=== PATIENT | male | born 1970 | race Caucasian/White ===

== ENCOUNTER 2025-02-26 19:34 | Emergency (ER) | payer OTHER, SELFPAY ==
[2025-02-26] VITALS (10 sets, daily range): BP systolic 116–149; BP diastolic 84–100; BMI 29.6
[2025-02-26 19:59] LABS: % Basophils 0.8 % (0-2); % Eosinophils 2.2 % (0-6); % Immature Granulocytes 0.3 % (0-0.5); % Lymphocytes 37.3 % (20.5-51.1); % Monocytes 9.2 % (1.7-9.3); % Neutrophils 50.2 % (42.2-75.2); Absolute Basophils 0.1 10^3/uL (0-0.2); Absolute Eosinophils 0.2 10^3/uL (0-0.7); Absolute Lymphocytes 2.7 10^3/uL (1.2-3.4); Absolute Monocytes 0.7 10^3/uL (0.1-0.6); Absolute Neutrophils 3.7 10^3/uL (1.4-6.5); Hemoglobin 16.7 g/dL (13.0-18.0); Mean Corp Hgb Conc. 34.8 g/dL (33.0-37.0); Mean Corpuscular Hgb 31.4 pg (27.0-31.0); Mean Corpuscular Volume 90.2 fL (80.0-94.0); Mean Platelet Volume 11.3 fL (7.4-10.4); Nucleated Red Blood Cells % 0 % (-); Platelet Count 182 10^3/uL (130-400); Red Blood Cell Count 5.32 10^6/uL (4.70-6.10); Red Cell Dist. Width 12.4 % (11.5-14.5); White Blood Cell Count 7.3 10^3/uL (4.8-10.8)
[2025-02-26 20:16] LABS: ALT (SGPT) 40 U/L (0-50); AST (SGOT) 36 U/L (17-59); Albumin 4.9 g/dl (3.5-5.0); Alkaline Phosphatase 65 U/L (38-126); Blood Urea Nitrogen 27 mg/dl (9-20); Calcium 9.2 mg/dl (8.4-10.2); Carbon Dioxide 26 mmol/L (22-30); Chloride 106 mmol/L (98-107); Glucose 137 mg/dl (70-99); Magnesium 2.2 mg/dl (1.6-2.3); Potassium 3.9 mmol/L (3.5-5.1); Sodium 141 mmol/L (135-145); Total Bilirubin 0.9 mg/dl (0.2-1.3); Total Protein 7.5 g/dl (6.3-8.2); eGFR > 60.00
[2025-02-26 20:23] LABS: Troponin I 0.025 ng/ml
[2025-02-26 20:46] LABS: TSH Reflex To Free T4 2.29 uIU/ml (0.47-4.68)
--- NOTE | 2025-02-26 21:03 | ED.GENMED ---
History of Present Illness
General
Chief Complaint: Heart Rate Problem
Time Seen by Provider: 02/26/25 20:34
History of Present Illness
History of Present Illness:
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 Patient states at 7:30 PM he developed palpitations. He checked his Apple Watch and was found to be in atrial
fibrillation. He does have history of 1 episode of atrial fibrillation in July when he went to [place] and he was cardioverted. His [id number] was 0 so they did not initiate Eliquis and they did not start him on antiarrhythmic. History of
thyroiditis that resolved. No chest pain. No shortness of breath. He does see Dr. Shirley from cardiology. He did have a CT calcium score that was 0. He denies any recent illnesses. He does state that he had extra chocolate today with his
usual 2 cups of coffee.
Past History
Past History
ED Past Medical History: Hypercholesterolemia and Other ( prediabetes diet controlled)
ED Past Surgical History: Appendectomy
Social History
Tobacco: Non-smoker
Alcohol: None
Personal:
Living: with family
Family History
Family History: Other (Mother with previous cholecystectomy and aortic valve replacement. Father with hypertension)
Phy Exam
Physical Exam
Physical Exam:
GENERAL: in no acute distress
HEENT: normocephalic, extraocular movements intact, moist oral mucosa
NECK: normal inspection
RESPIRATORY: no respiratory distress, clear to auscultation bilaterally
CARDIOVASCULAR: Irregularly irregular, tachycardic
ABDOMEN/: soft, non-distended, non-tender to palpation, no rebound or guarding
EXTREMITIES: non-tender, no edema/swelling
NEUROLOGIC: awake and alert, moves all extremities
SKIN: warm
Course
Orders/Labs/Results
Orders:
Orders
02/26/25 19:38
ECG [Electrocardiogram (*1)] Urgent
Reason for Study: Tachycardia
02/26/25 19:39
EKG- Treatment ONCE
02/26/25 19:45
Complete Blood Count/With Diff Urgent
Comprehensive Metabolic Panel Urgent
Magnesium Urgent
TSH Reflex To Free T4 Urgent
Troponin I Urgent
02/26/25 21:01
Etomidate [Amidate] 8 mg IV NOW STA
02/26/25 21:02
Etomidate [Amidate 20 mg] 20 mg .ROUTE .STK-MED ONE
02/26/25 21:14
Ondansetron Injectable [Zofran] 4 mg .ROUTE .STK-MED ONE
02/26/25 21:27
Electrocardiogram (*1) Urgent
Reason for Study: Other
Other Reason for Exam: post cardioversion
EKG- Treatment ONCE
Abnormal Lab Results
02/26/25
19:45
MCH 31.4 H pg
(27.0-31.0)
MPV 11.3 H fL
(7.4-10.4)
Absolute Monos (auto) 0.7 H 10^3/uL
(0.1-0.6)
BUN 27 H mg/dl
(9-20)
Glucose 137 H mg/dl
(70-99)
02/26/25 19:45
02/26/25 19:45
Vital Signs
Initial and Last Documented VS:
Initial Vital Signs
Temp Pulse Resp BP Pulse Ox
98.0 F 76 20 149/100 98
02/26/25 19:36 02/26/25 19:36 02/26/25 19:36 02/26/25 19:36 02/26/25 19:36
Last Documented Vital Signs
Temp Pulse Resp BP Pulse Ox
98.5 F 86 18 138/96 100
02/26/25 21:29 02/26/25 22:04 02/26/25 22:04 02/26/25 22:04 02/26/25 22:04
Procedures
Cardioversion
Indication:: Afib
Performed by:: shanon
Synchronized?: Yes
Energy Used: 200 joules
Number of attempts: 1
Successful?: Yes
ASA Risk Score: Class I
Any reaction or bad outcome to prior sedation/anesthesia?: No history of a reaction
Sedation level to be attained: moderate
Chart and allergies reviewed: Yes
Patient reassessed prior to sedation: Yes
Time out completed at (validating right patient & procedure): 21:22
History of difficult intubation: No
Airway free of obstruction: Yes
Patient has a gag reflex: Yes
Patient is able to open mouth: Yes
Patient has no dentures: Yes
Patient has no loose teeth: Yes
Medication administered by Provider during Moderate Sedation: Other (etomidate)
Total dose administered: 8
Start Time: 21:24
Stop Time: 21:34
MDM/Problems Addressed
Differential Diagnosis Includes:
Patient is a 54-year-old man presenting to the emergency department with elevated heart rate. During my evaluation patient's heart rate was anywhere from the 140s to the 170s in afib. Exam is otherwise reassuring. Unclear etiology of patient's
atrial fibrillation but he does not appear septic and does not have any risk factors for PE. Could be secondary to the caffeine. Will check electrolytes as well as thyroid given patient's history.
*Critical Care Note
Total Time (30-74mins, 75-104mins- exclusive of procedures): Not Applicable (31)
comment:
Critical care statement: A total of 31 minutes of critical care time was provided for this patient. This includes management of unstable vital signs, evaluation of the patient at bedside, reviewing the patient's pertinent medical records, ordering
and reviewing studies, arranging urgent treatment with development of a management plan, evaluating patient's response to treatment, frequent reassessment, and discussion with consultants. This time was separate from time utilized to perform the
aforementioned documented procedures.
Update Note
Update Note:
Blood work is reassuring. Of note troponin was sent prior to my evaluation. Patient with no chest pain today or earlier today. Will not obtain delta given that his symptoms are palpitations as he is currently in atrial fibrillation. After shared
decision making patient will like to proceed with cardioversion
Patient successfully cardioverted. Repeat EKG per my interpretation normal sinus rhythm. His [id number] remains 0. Given this is his second paroxysmal A-fib episode I did discuss with Dr. Hernandez regarding rate control. He does state to hold off
on starting any medications. his office will schedule an appointment for close follow up.
On reevaluation patient tolerating p.o. He has ambulated. He remains in normal sinus rhythm. Will discharge at this time.
ED Attending Note
-
Portions of this chart may have been created with voice recognition software.� Occasional wrong word or��sound alike� substitutions may have occurred due to the inherent limitations of voice recognition software.
Discharge Plan
Departure
Patient Disposition: Home (Routine Discharge)
Date of Disposition: 02/26/25
Time of Disposition: 22:29
Patient with high blood pressure during this ER visit?: No
Discharge Problem:
Atrial fibrillation, Encounter for cardioversion procedure
Instructions: Atrial fibrillation and atrial flutter - ED discharge instructions, Sedation for procedures in adults - ED discharge instructions
Prescriptions:
No Action
atorvastatin 10 MG tablet
10 mg PO DAILY
omeprazole 20 MG capsule,delayed release(DR/EC)
20 mg PO DAILY
metformin 500 MG tablet extended release 24 hr
500 mg PO DAILY
doxycycline hyclate 100 MG capsule
100 mg PO Q12 Qty: 28 0RF
methimazole 5 MG tablet
10 mg PO DAILY Qty: 30 0RF
Referrals:
Vishal Shirley MD [Active, Cardiology]
UNKNOWN - PT DOES,NOT KNOW [Unknown Provider]
Activity Restrictions/Additional Instructions:
You were seen in the Emergency Department today for atrial fibrillation. While you were here we performed a cardioversion that restored your heart to a normal sinus rhythm. Somebody from Dr. Shirley's office will call you to schedule an appointment
for close follow-up.
We would like for you to follow up with your primary care physician for further evaluation. If you experience fever, worsening of your symptoms, or develop any other new or concerning symptoms, please return to the Emergency Department immediately.
Please see the attached sheet for additional information.
Interventions
Interventions:
*Risk Screen - Suicide Last Done: 02/26/25 20:19
*General Assessment Last Done: 02/26/25 19:36
*Neglect/Abuse Screening Last Done: 02/26/25 20:19
*ED- Fall Risk Assessment Last Done: 02/26/25 20:19
*ED COVID-19 Vaccine History Last Done: 02/26/25 20:19
ED- Cardiac Assessment Last Done: 02/26/25 20:26
ED- Pulmonary Assessment Last Done: 02/26/25 20:26
Discharge Date and Time
Print Language: MAURITANIAN
== END 2025-02-26 23:01 | disposition home or self-care (01) ==
LOC: EMR 19:34
PROVIDERS: Emergency Medicine; EMERGENCY PHYSICIAN Student in an Organized Health Care Education/Training Program; FAMILY PHYSICIAN Family Medicine
DX: I48.0 Paroxysmal atrial fibrillation (principal); E78.00 Pure hypercholesterolemia, unspecified; R73.03 Prediabetes
CPT/HCPCS: 99291; 92960; 99152; 80053; 83735; 84443; 84484; 85025; 93005